=== PATIENT | male | born 1945 | race Caucasian/White ===

== ENCOUNTER 2016-11-26 06:54 | Day surgery (SDC) | payer OTHER ==
[~2016-11-26] VITALS: Ht 167.6 cm; Wt 80.7 kg
[2016-11-26] MEDS ORDERED: LIDOCAINE 2% 100 MG/5 ML UJET TP ONE (07:29)
[2016-11-26] MEDS ORDERED: LISI5TAB18 PO (09:18)
[2016-11-26] MEDS ORDERED: DOL10 PO (09:18)
[2016-11-26] MEDS ORDERED: ATOR10TA PO (09:18)
== END 2016-11-26 10:30 | disposition home or self-care (01) ==
LOC: MDS 06:54 → MMU 07:04 → MDS 10:30
PROVIDERS: ATTEND Internal Medicine Gastroenterology
DX: K63.5 Polyp of colon (principal)